=== PATIENT | male | born 1955 | race Caucasian/White ===

== ENCOUNTER 2024-02-19 12:23 | Inpatient (IN) ==
[2024-02-19] MEDS ORDERED: IOPAMIDOL 100 ML BOTTLE IV ONE (12:24)
[2024-02-19] MEDS ORDERED: 0.9 % SODIUM CHLORIDE 1,000 ML IV SCH (12:45)
[2024-02-19 13:24] LABS: Basophils # (Auto) 0.02 K/mcL (0.00-0.30); Basophils % (Auto) 0.1 % (0.0-2.0); Eosinophils # (Auto) 0.08 K/mcL (0.00-0.70); Eosinophils % (Auto) 0.5 % (0.0-7.0); Hematocrit 41.5 % (40.1-51.0); Hemoglobin 13.3 g/dL (13.7-17.5); Lymphocytes # (Auto) 0.75 K/mcL (1.50-4.80); Lymphocytes % (Auto) 4.5 % (15.5-49.0); Mean Cell Volume 100.2 fL (80.0-100.0); Mean Platelet Volume 10.4 fL (8.8-12.5); Monocytes # (Auto) 1.21 K/mcL (0.10-0.90); Monocytes % (Auto) 7.2 % (1.0-12.0); Neutrophils % (Auto) 87.6 % (38.0-78.0); Platelet Count 275 K/mcL (140-440); RBC 4.14 M/mcL (4.63-6.08); Red Cell Distribution Width 15.7 % (11.5-14.5); WBC 16.8 K/mcL (4.5-11.0)
[2024-02-19] MEDS: morphine 4 MG/ML VIAL IV ONE (13:56)
[2024-02-19 13:57] LABS: Thyroid Stimulating Hormone 0.81 uIU/mL (0.27-5.01)
[2024-02-19] MEDS: 0.9 % SODIUM CHLORIDE 1,000 ML IV ONE (13:57)
[2024-02-19 14:00] LABS: ALT/SGPT 44 U/L (<40); AST/SGOT 24 U/L (<40); Albumin 3.5 gm/dL (3.2-5.2); Albumin/Globulin Ratio 1.5 (1.0-2.3); Alkaline Phosphatase 119 U/L (39-117); Bilirubin,Total 0.4 mg/dL (0.1-1.0); Blood Urea Nitrogen 18 mg/dL (8-23); Calcium 8.8 mg/dL (8.6-10.4); Carbon Dioxide 24 mmol/L (22-30); Chloride 100 mmol/L (96-108); Globulin 2.4 gm/dL (2.2-3.7); Glomerular Filtration Rate 123; Glucose 94 mg/dL (70-105); Potassium 4.4 mmol/L (3.3-5.1); Sodium 134 mmol/L (133-145)
[2024-02-19 14:36] LABS: Free T4 (Free Thyroxine) 0.95 ng/dL (0.93-1.70)
[2024-02-19 14:57] LABS: Appearance,Urine Turbid (Clear); Bilirubin,Urine Negative (Negative); Color,Urine Yellow; Culture Indicated,Urine Yes; Glucose,Urine (UA) Negative (Negative); Ketones,Urine Negative (Negative); Leukocyte Esterase,Urine Trace /uL (Negative); Nitrate,Urine Positive (Negative); PH,Urine 8.5 (5.0-9.0); Protein,Urine 100 mg/dL (Negative); Specific Gravity,Urine 1.015 (1.000-1.035); Urine Blood Trace-intact ery/mcL (Negative); Urine RBC 8 /hpf (0-3); Urine Squamous Epithelial Cell 0 /hpf (0-4); Urine WBC 75 /hpf (0-4); Urobilinogen,Urine Normal
[2024-02-19] MEDS: MEROPENEM 0.5 GM in 0.9 % SODIUM CHLORIDE 50 ML IV ONE (15:16)
[2024-02-19] MEDS: VANCOMYCIN 1,500 MG in 0.9 % SODIUM CHLORIDE 500 ML IV ONE (18:24)
[2024-02-19] MEDS ORDERED: guaiFENesin/DEXTROMETHORPHAN 5ML UD CUP PO PRN (19:44)
[2024-02-19] MEDS ORDERED: ACETAMINOPHEN 325 MG TABLET PO PRN (19:44)
[2024-02-19] MEDS: SENNOSIDES 1 TABLET PO SCH (20:50)
[2024-02-19] MEDS: DOCUSATE SODIUM 100 MG CAPSULE PO SCH (20:50)
[2024-02-19] MEDS: 0.9 % SODIUM CHLORIDE 1,000 ML IV SCH (20:50)
[2024-02-19] MEDS: 0.9 % SODIUM CHLORIDE 10 ML SYRINGE IV SCH (20:51)
[2024-02-19] MEDS: VANCOMYCIN PER PHARMACY IV ONE (20:51)
[2024-02-19] MEDS: MEROPENEM 0.5 GM in 0.9 % SODIUM CHLORIDE 50 ML IV SCH (22:21)
[2024-02-19] MEDS ORDERED: IPRATROPIUM 2.5 ML AMPUL.NEB INH PRN (23:19)
[2024-02-20 07:06] LABS: Basophils # (Auto) 0.02 K/mcL (0.00-0.30); Basophils % (Auto) 0.2 % (0.0-2.0); Eosinophils # (Auto) 0.26 K/mcL (0.00-0.70); Eosinophils % (Auto) 2.9 % (0.0-7.0); Hematocrit 39.1 % (40.1-51.0); Hemoglobin 12.4 g/dL (13.7-17.5); Lymphocytes # (Auto) 1.22 K/mcL (1.50-4.80); Lymphocytes % (Auto) 13.6 % (15.5-49.0); Mean Cell Volume 102.1 fL (80.0-100.0); Mean Corpuscular HGB Conc 31.7 g/dL (31.0-36.0); Mean Platelet Volume 10.2 fL (8.8-12.5); Monocytes # (Auto) 0.92 K/mcL (0.10-0.90); Monocytes % (Auto) 10.3 % (1.0-12.0); Neutrophils % (Auto) 72.9 % (38.0-78.0); Platelet Count 227 K/mcL (140-440); RBC 3.83 M/mcL (4.63-6.08); Red Cell Distribution Width 15.6 % (11.5-14.5)
[2024-02-20 07:34] LABS: ALT/SGPT 34 U/L (<40); AST/SGOT 17 U/L (<40); Albumin 3.3 gm/dL (3.2-5.2); Albumin/Globulin Ratio 1.4 (1.0-2.3); Alkaline Phosphatase 102 U/L (39-117); Bilirubin,Total 0.5 mg/dL (0.1-1.0); Blood Urea Nitrogen 11 mg/dL (8-23); Calcium 8.8 mg/dL (8.6-10.4); Carbon Dioxide 26 mmol/L (22-30); Chloride 103 mmol/L (96-108); Globulin 2.3 gm/dL (2.2-3.7); Glomerular Filtration Rate 138; Glucose 73 mg/dL (70-105); Sodium 137 mmol/L (133-145)
[2024-02-20] MEDS ORDERED: BISACODYL 5 MG TABLET PO PRN (07:42)
[2024-02-20] MEDS ORDERED: VANCOMYCIN PER PHARMACY IV SCH (08:00)
[2024-02-20] MEDS: HYDROcodone/APAP 10/325MG TABLET PO PRN (08:41)
[2024-02-20] MEDS: PREGABALIN 100 MG CAPSULE PO SCH (09:04)
[2024-02-20] MEDS: DULoxetine 30 MG CAPSULE PO SCH (09:05)
[2024-02-20] MEDS: BACLOFEN 10 MG TABLET PO SCH (09:05)
[2024-02-20] MEDS: PANTOPRAZOLE 40 MG TABLET PO SCH (09:05)
[2024-02-20] MEDS: ENOXAPARIN 40 MG/0.4 ML SYRINGE SQ SCH (09:06)
[2024-02-20] MEDS: FLUDROCORTISONE 0.1 MG TABLET PO SCH (10:27)
[2024-02-20] MEDS: VANCOMYCIN 1,250 MG in 0.9 % SODIUM CHLORIDE 500 ML IV SCH (12:21)
[2024-02-20] MEDS: morphine 4 MG/ML VIAL IV PRN (13:07)
[2024-02-20] MEDS: ONDANSETRON 4 MG/2 ML VIAL IV PRN (20:06)
[2024-02-20 20:14] LABS: ALT/SGPT 31 U/L (<40); AST/SGOT 17 U/L (<40); Albumin 3.3 gm/dL (3.2-5.2); Albumin/Globulin Ratio 1.4 (1.0-2.3); Alkaline Phosphatase 99 U/L (39-117); Bilirubin,Direct < 0.2 mg/dL (0-0.3); Bilirubin,Total 0.3 mg/dL (0.1-1.0); Blood Urea Nitrogen 9 mg/dL (8-23); Calcium 8.7 mg/dL (8.6-10.4); Carbon Dioxide 26 mmol/L (22-30); Chloride 106 mmol/L (96-108); Globulin 2.4 gm/dL (2.2-3.7); Glomerular Filtration Rate 123; Glucose 102 mg/dL (70-105); Lactate Dehydrogenase 195 U/L (135-225); Phosphorous 2.6 mg/dL (2.5-4.5); Potassium 3.9 mmol/L (3.3-5.1); Sodium 139 mmol/L (133-145); Triglycerides 116 mg/dL (<150); Uric Acid 5.1 mg/dL (2.5-8.0)
[2024-02-20 20:41] LABS: Prealbumin 14.5 mg/dL (20.0-40.0)
[2024-02-20] MEDS: CHLORHEXIDINE GLUCONATE 15 ML UDC SWABMOUTH SCH (21:37)
[2024-02-20] MEDS: traMADol 50 MG TABLET PO PRN (21:38)
[2024-02-21 07:16] LABS: ALT/SGPT 29 U/L (<40); AST/SGOT 15 U/L (<40); Albumin 3.4 gm/dL (3.2-5.2); Albumin/Globulin Ratio 1.5 (1.0-2.3); Alkaline Phosphatase 114 U/L (39-117); Bilirubin,Direct < 0.2 mg/dL (0-0.3); Bilirubin,Total 0.3 mg/dL (0.1-1.0); Blood Urea Nitrogen 8 mg/dL (8-23); Calcium 8.9 mg/dL (8.6-10.4); Carbon Dioxide 27 mmol/L (22-30); Chloride 108 mmol/L (96-108); Globulin 2.2 gm/dL (2.2-3.7); Glomerular Filtration Rate 138; Glucose 110 mg/dL (70-105); Lactate Dehydrogenase 360 U/L (135-225); Phosphorous 3.4 mg/dL (2.5-4.5); Potassium 3.8 mmol/L (3.3-5.1); Sodium 142 mmol/L (133-145); Triglycerides 130 mg/dL (<150); Uric Acid 5.2 mg/dL (2.5-8.0)
[2024-02-21] MEDS: VANCOMYCIN 1,500 MG in 0.9 % SODIUM CHLORIDE 500 ML IV SCH (20:09)
[2024-02-22] MEDS ORDERED: GADOBENATE DIMEGLUMINE 20 ML/VIAL IV ONE (09:59)
[2024-02-23] MEDS: IPRATROPIUM/ALBUTEROL 3 ML AMPUL.NEB NEB PRN (12:10)
[2024-02-23] MEDS: guaiFENesin 600 MG TAB.SR.12H PO PRN (14:13)
[2024-02-23] MEDS: 0.9 % SODIUM CHLORIDE 10 ML SYRINGE IV SCH (21:06)
[2024-02-24] MEDS ORDERED: SODIUM CHLORIDE IRRIG SOLUTION 500 ML BOTTLE IRR ONE (10:30)
== END 2024-02-24 16:45 | disposition home or self-care (01) | DRG 193 ==
LOC: ED 12:23 → MEDSUR 19:35
PROVIDERS: ADMIT Internal Medicine; ATTEND Internal Medicine

== ENCOUNTER 2024-04-16 21:05 | Inpatient (IN) ==
[2024-04-16 22:23] LABS: Basophils # (Auto) 0.01 K/mcL (0.00-0.30); Basophils % (Auto) 0.1 % (0.0-2.0); Eosinophils # (Auto) 0.06 K/mcL (0.00-0.70); Eosinophils % (Auto) 0.3 % (0.0-7.0); Hematocrit 43.9 % (40.1-51.0); Hemoglobin 14.3 g/dL (13.7-17.5); Lymphocytes # (Auto) 0.44 K/mcL (1.50-4.80); Lymphocytes % (Auto) 2.3 % (15.5-49.0); Mean Cell Volume 94.4 fL (80.0-100.0); Mean Corpuscular HGB Conc 32.6 g/dL (31.0-36.0); Mean Platelet Volume 10.3 fL (8.8-12.5); Monocytes # (Auto) 1.39 K/mcL (0.10-0.90); Monocytes % (Auto) 7.3 % (1.0-12.0); Neutrophils % (Auto) 89.8 % (38.0-78.0); Platelet Count 217 K/mcL (140-440); RBC 4.65 M/mcL (4.63-6.08); Red Cell Distribution Width 12.2 % (11.5-14.5); WBC 19.1 K/mcL (4.5-11.0)
[2024-04-16] MEDS: ACETAMINOPHEN 1,000 MG/100 ML BAG IV ONE (22:44)
[2024-04-16] MEDS: 0.9 % SODIUM CHLORIDE 1,000 ML IV ONE (22:44)
[2024-04-16 22:45] LABS: Thyroid Stimulating Hormone 0.45 uIU/mL (0.27-5.01)
[2024-04-16 22:46] LABS: ALT/SGPT 37 U/L (<40); AST/SGOT 25 U/L (<40); Albumin 3.7 gm/dL (3.2-5.2); Albumin/Globulin Ratio 1.6 (1.0-2.3); Alkaline Phosphatase 111 U/L (39-117); Bilirubin,Total 0.2 mg/dL (0.1-1.0); Blood Urea Nitrogen 21 mg/dL (8-23); Calcium 8.8 mg/dL (8.6-10.4); Carbon Dioxide 23 mmol/L (22-30); Chloride 103 mmol/L (96-108); Globulin 2.3 gm/dL (2.2-3.7); Glomerular Filtration Rate 123; Glucose 106 mg/dL (70-105); Sodium 137 mmol/L (133-145)
[2024-04-16] MEDS: VANCOMYCIN 2,000 MG in 0.9 % SODIUM CHLORIDE 500 ML IV ONE (23:40)
[2024-04-16 23:42] LABS: Appearance,Urine CLOUDY (Clear); Bilirubin,Urine Negative (Negative); Color,Urine YELLOW; Glucose,Urine (UA) Negative (Negative); Ketones,Urine Negative (Negative); Leukocyte Esterase,Urine 500 /uL (Negative); Mucus,Urine FEW /hpf; Nitrate,Urine Negative (Negative); Protein,Urine 100 mg/dL (Negative); Specific Gravity,Urine 1.025 (1.000-1.035); Triple Phosphate Crystal,Urine FEW /hpf; Urine Amorphous Crystals FEW /hpf; Urine Blood Negative (Negative); Urine RBC 12 /hpf (0-3); Urine Squamous Epithelial Cell 0 /hpf (0-4); Urine WBC 77 /hpf (0-4); Urobilinogen,Urine Negative
[2024-04-16 23:52] LABS: Amphetamine Screen,Urine None detected; Barbiturate Screen,Urine None detected; Benzodiazepines Screen,Urine None detected; Cannabinoid Screen,Urine None detected; Cocaine Screen,Urine None detected; Fentanyl, Urine Screen None Detected; Opiate Screen,Urine Suspect Positive; Oxycodone, Urine Screen None detected; Phencyclidine Screen,Urine None detected
[2024-04-17] MEDS: IPRATROPIUM/ALBUTEROL 3 ML AMPUL.NEB NEB ONE (01:12)
[2024-04-17] MEDS ORDERED: ONDANSETRON 4 MG/2 ML VIAL IV PRN ×2 (01:33→09:32)
[2024-04-17] MEDS: MEROPENEM 0.5 GM in 0.9 % SODIUM CHLORIDE 50 ML IV ONE (01:50)
[2024-04-17] MEDS: ACETAMINOPHEN 650 MG/65 ML BAG IV STA (07:43)
[2024-04-17] MEDS ORDERED: IPRATROPIUM/ALBUTEROL 3 ML AMPUL.NEB NEB PRN (09:32)
[2024-04-17] MEDS ORDERED: POTASSIUM CHLORIDE 40 MEQ in DEXTROSE 5% IN WATER 500 ML IV PRN (09:32)
[2024-04-17] MEDS ORDERED: MAGNESIUM SULFATE 2 GM/50 ML BAG IV PRN (09:32)
[2024-04-17] MEDS ORDERED: POTASSIUM CHLORIDE 20 MEQ TABLET PO PRN ×2 (09:32)
[2024-04-17] MEDS ORDERED: METOCLOPRAMIDE 10 MG/2 ML VIAL IV PRN (09:32)
[2024-04-17] MEDS ORDERED: POLYETHYLENE GLYCOL 3350 17 GM PACKET PO PRN (09:32)
[2024-04-17] MEDS ORDERED: VANCOMYCIN PER PHARMACY IV SCH (09:32)
[2024-04-17] MEDS ORDERED: BISACODYL 5 MG TABLET PO PRN (09:53)
[2024-04-17] MEDS: DULoxetine 30 MG CAPSULE PO SCH (10:15)
[2024-04-17] MEDS: HYDROcodone/APAP 10/325MG TABLET PO PRN (10:16)
[2024-04-17] MEDS: MEROPENEM 1 GM in 0.9 % SODIUM CHLORIDE 50 ML IV SCH (10:16)
[2024-04-17] MEDS: CITALOPRAM 20 MG TABLET PO SCH (10:16)
[2024-04-17] MEDS: FLUDROCORTISONE 0.1 MG TABLET PO SCH (10:51)
[2024-04-17] MEDS: VANCOMYCIN 2,000 MG in 0.9 % SODIUM CHLORIDE 500 ML IV SCH (11:43)
[2024-04-17] MEDS: BACLOFEN 10 MG TABLET PO SCH (12:53)
[2024-04-17] MEDS: 0.9 % SODIUM CHLORIDE 10 ML SYRINGE IV SCH (14:30)
[2024-04-17] MEDS ORDERED: HYDROcodone/APAP 10/325MG TABLET PO PRN (14:43)
[2024-04-17] MEDS ORDERED: PREGABALIN 100 MG CAPSULE PO SCH (15:00)
[2024-04-17] MEDS: BISACODYL 5 MG TABLET PO ONE (15:08)
[2024-04-17] MEDS: POLYETHYLENE GLYCOL 3350 17 GM PACKET PO ONE (15:08)
[2024-04-17] MEDS: HYPROMELLOSE OU SCH (21:21)
[2024-04-17] MEDS: HYDROcodone/APAP 10/325MG TABLET PO SCH (21:21)
[2024-04-17] MEDS: [UNRECOGNIZED DRUG - OTHER] OU SCH (21:21)
[2024-04-17] MEDS: PROPYLENE GLYCOL OU SCH (21:21)
[2024-04-17] MEDS: [UNRECOGNIZED DRUG - OTHER] OU SCH (21:21)
[2024-04-17] MEDS: TRAMADOL 100 MG PO SCH (21:22)
[2024-04-17] MEDS: PREGABALIN 100 MG CAPSULE PO SCH (21:23)
[2024-04-17] MEDS: DOCUSATE SODIUM 100 MG CAPSULE PO SCH (21:23)
[2024-04-17] MEDS: guaiFENesin 600 MG TAB.SR.12H PO SCH (21:23)
[2024-04-18 06:06] LABS: Basophils # (Auto) 0.03 K/mcL (0.00-0.30); Basophils % (Auto) 0.2 % (0.0-2.0); Eosinophils # (Auto) 0.14 K/mcL (0.00-0.70); Eosinophils % (Auto) 0.9 % (0.0-7.0); Hematocrit 38.4 % (40.1-51.0); Hemoglobin 13.1 g/dL (13.7-17.5); Lymphocytes # (Auto) 1.01 K/mcL (1.50-4.80); Lymphocytes % (Auto) 6.4 % (15.5-49.0); Mean Cell Volume 90.4 fL (80.0-100.0); Mean Corpuscular HGB Conc 34.1 g/dL (31.0-36.0); Mean Platelet Volume 10.6 fL (8.8-12.5); Monocytes # (Auto) 1.48 K/mcL (0.10-0.90); Monocytes % (Auto) 9.4 % (1.0-12.0); Neutrophils % (Auto) 82.9 % (38.0-78.0); Platelet Count 189 K/mcL (140-440); RBC 4.25 M/mcL (4.63-6.08); Red Cell Distribution Width 12.5 % (11.5-14.5); WBC 15.7 K/mcL (4.5-11.0)
[2024-04-18 06:36] LABS: ALT/SGPT 21 U/L (<40); AST/SGOT 17 U/L (<40); Albumin 3.1 gm/dL (3.2-5.2); Albumin/Globulin Ratio 1.2 (1.0-2.3); Alkaline Phosphatase 96 U/L (39-117); Bilirubin,Direct < 0.2 mg/dL (0-0.3); Bilirubin,Total 0.3 mg/dL (0.1-1.0); Blood Urea Nitrogen 11 mg/dL (8-23); Calcium 8.5 mg/dL (8.6-10.4); Carbon Dioxide 24 mmol/L (22-30); Chloride 106 mmol/L (96-108); Globulin 2.5 gm/dL (2.2-3.7); Glomerular Filtration Rate 138; Glucose 101 mg/dL (70-105); Lactate Dehydrogenase 123 U/L (135-225); Phosphorous 1.8 mg/dL (2.5-4.5); Potassium 3.7 mmol/L (3.3-5.1); Sodium 140 mmol/L (133-145); Triglycerides 96 mg/dL (<150); Uric Acid 3.4 mg/dL (2.5-8.0)
[2024-04-18] MEDS: BISACODYL 5 MG TABLET PO SCH (09:11)
[2024-04-18] MEDS: POLYETHYLENE GLYCOL 3350 17 GM PACKET PO SCH (09:11)
[2024-04-18] MEDS: ENOXAPARIN 40 MG/0.4 ML SYRINGE SQ SCH (09:12)
[2024-04-18] MEDS: POTASSIUM PHOSPHATE 20 MEQ in DEXTROSE 5% IN WATER 250 ML IV ONE (09:19)
[2024-04-18] MEDS: VANCOMYCIN 1,500 MG in 0.9 % SODIUM CHLORIDE 500 ML IV SCH (11:33)
[2024-04-18 14:14] LABS: Appearance,Urine Slightly Cloudy (Clear); Bilirubin,Urine Negative (Negative); Color,Urine Yellow; Glucose,Urine (UA) Negative (Negative); Ketones,Urine Negative (Negative); Leukocyte Esterase,Urine Small /uL (Negative); Nitrate,Urine Negative (Negative); PH,Urine 5.5 (5.0-9.0); Protein,Urine Negative (Negative); Urine Blood Large ery/mcL (Negative); Urine RBC 2 /hpf (0-3); Urine Squamous Epithelial Cell 0 /hpf (0-4); Urine WBC 1 /hpf (0-4); Urobilinogen,Urine Normal
[2024-04-18] MEDS: PREGABALIN 100 MG CAPSULE PO SCH (14:21)
[2024-04-18] MEDS: ACETAMINOPHEN 325 MG TABLET PO PRN (14:25)
[2024-04-18] MEDS: CITALOPRAM 20 MG TABLET PO SCH (21:20)
[2024-04-19 05:58] LABS: Basophils # (Auto) 0.01 K/mcL (0.00-0.30); Basophils % (Auto) 0.1 % (0.0-2.0); Eosinophils # (Auto) 0.07 K/mcL (0.00-0.70); Eosinophils % (Auto) 0.8 % (0.0-7.0); Hematocrit 38.1 % (40.1-51.0); Hemoglobin 12.8 g/dL (13.7-17.5); Lymphocytes # (Auto) 0.59 K/mcL (1.50-4.80); Lymphocytes % (Auto) 7.1 % (15.5-49.0); Mean Cell Volume 90.7 fL (80.0-100.0); Mean Corpuscular HGB Conc 33.6 g/dL (31.0-36.0); Mean Platelet Volume 10.3 fL (8.8-12.5); Monocytes # (Auto) 1.12 K/mcL (0.10-0.90); Monocytes % (Auto) 13.5 % (1.0-12.0); Neutrophils % (Auto) 78.3 % (38.0-78.0); Platelet Count 177 K/mcL (140-440); Red Cell Distribution Width 12.4 % (11.5-14.5); WBC 8.3 K/mcL (4.5-11.0)
[2024-04-19] MEDS: BISACODYL 5 MG TABLET PO SCH (08:43)
[2024-04-19] MEDS: SENNOSIDES 1 TABLET PO PRN (08:44)
[2024-04-19 09:39] LABS: ALT/SGPT 21 U/L (<40); AST/SGOT 13 U/L (<40); Albumin 3.1 gm/dL (3.2-5.2); Albumin/Globulin Ratio 1.3 (1.0-2.3); Alkaline Phosphatase 87 U/L (39-117); Bilirubin,Direct < 0.2 mg/dL (0-0.3); Bilirubin,Total 0.3 mg/dL (0.1-1.0); Blood Urea Nitrogen 11 mg/dL (8-23); Calcium 8.3 mg/dL (8.6-10.4); Carbon Dioxide 25 mmol/L (22-30); Chloride 105 mmol/L (96-108); Globulin 2.3 gm/dL (2.2-3.7); Glomerular Filtration Rate 138; Glucose 97 mg/dL (70-105); Lactate Dehydrogenase 127 U/L (135-225); Phosphorous 2.3 mg/dL (2.5-4.5); Potassium 3.5 mmol/L (3.3-5.1); Sodium 140 mmol/L (133-145); Triglycerides 120 mg/dL (<150); Uric Acid 3.2 mg/dL (2.5-8.0)
[2024-04-19] MEDS ORDERED: GADOBENATE DIMEGLUMINE 20 ML/VIAL IV ONE (12:19)
[2024-04-19] MEDS: PREGABALIN 100 MG CAPSULE PO SCH (13:21)
[2024-04-19] MEDS: ACETAMINOPHEN 500 MG TABLET PO PRN (14:47)
[2024-04-19] MEDS: IBUPROFEN 600 MG TABLET PO PRN (14:47)
[2024-04-20 06:36] LABS: C-Reactive Protein 9.93 mg/dL (0.03-0.80)
[2024-04-20 06:37] LABS: ALT/SGPT 23 U/L (<40); AST/SGOT 16 U/L (<40); Albumin 2.9 gm/dL (3.2-5.2); Albumin/Globulin Ratio 1.5 (1.0-2.3); Alkaline Phosphatase 78 U/L (39-117); Bilirubin,Direct < 0.2 mg/dL (0-0.3); Bilirubin,Total < 0.2 mg/dL (0.1-1.0); Blood Urea Nitrogen 14 mg/dL (8-23); Calcium 8.8 mg/dL (8.6-10.4); Carbon Dioxide 27 mmol/L (22-30); Chloride 107 mmol/L (96-108); Glomerular Filtration Rate 138; Glucose 87 mg/dL (70-105); Lactate Dehydrogenase 107 U/L (135-225); Phosphorous 2.4 mg/dL (2.5-4.5); Potassium 3.4 mmol/L (3.3-5.1); Sodium 143 mmol/L (133-145); Triglycerides 116 mg/dL (<150)
[2024-04-20 07:38] LABS: Basophils # (Auto) 0.03 K/mcL (0.00-0.30); Basophils % (Auto) 0.9 % (0.0-2.0); Eosinophils # (Auto) 0.25 K/mcL (0.00-0.70); Eosinophils % (Auto) 7.5 % (0.0-7.0); Hematocrit 38.7 % (40.1-51.0); Hemoglobin 12.4 g/dL (13.7-17.5); Lymphocytes # (Auto) 0.62 K/mcL (1.50-4.80); Lymphocytes % (Auto) 18.7 % (15.5-49.0); Mean Cell Volume 95.1 fL (80.0-100.0); Mean Platelet Volume 10.4 fL (8.8-12.5); Monocytes # (Auto) 0.77 K/mcL (0.10-0.90); Monocytes % (Auto) 23.2 % (1.0-12.0); Neutrophils % (Auto) 49.4 % (38.0-78.0); Platelet Count 195 K/mcL (140-440); RBC 4.07 M/mcL (4.63-6.08); Red Cell Distribution Width 12.3 % (11.5-14.5); WBC 3.3 K/mcL (4.5-11.0)
[2024-04-21] MEDS: CEPHALEXIN 500 MG CAPSULE PO SCH (08:46)
[2024-04-21] MEDS: LINEZOLID 600 MG TABLET PO SCH (08:49)
== END 2024-04-21 13:53 | disposition home health service (06) | DRG 698 ==
LOC: ED 21:05 → MEDSUR 04-17 02:16
PROVIDERS: ADMIT Internal Medicine; ATTEND Internal Medicine

== ENCOUNTER 2024-06-26 18:39 | Inpatient (IN) ==
[2024-06-26] MEDS: ACETAMINOPHEN 1,000 MG/100 ML BAG IV ONE (19:27)
[2024-06-26] MEDS: 0.9 % SODIUM CHLORIDE 1,000 ML IV ONE ×2 (19:28→21:21)
[2024-06-26 19:43] LABS: Basophils # (Auto) 0.02 K/mcL (0.00-0.30); Basophils % (Auto) 0.1 % (0.0-2.0); Eosinophils # (Auto) 0.11 K/mcL (0.00-0.70); Eosinophils % (Auto) 0.8 % (0.0-7.0); Hematocrit 41.4 % (40.1-51.0); Hemoglobin 13.4 g/dL (13.7-17.5); Lymphocytes # (Auto) 0.97 K/mcL (1.50-4.80); Lymphocytes % (Auto) 6.9 % (15.5-49.0); Mean Cell Volume 96.1 fL (80.0-100.0); Mean Corpuscular HGB Conc 32.4 g/dL (31.0-36.0); Mean Platelet Volume 10.3 fL (8.8-12.5); Monocytes # (Auto) 1.19 K/mcL (0.10-0.90); Monocytes % (Auto) 8.4 % (1.0-12.0); Neutrophils % (Auto) 83.5 % (38.0-78.0); Platelet Count 272 K/mcL (140-440); RBC 4.31 M/mcL (4.63-6.08); Red Cell Distribution Width 14.4 % (11.5-14.5); WBC 14.1 K/mcL (4.5-11.0)
[2024-06-26 19:57] LABS: Blood Urea Nitrogen 26 mg/dL (8-23); Carbon Dioxide 26 mmol/L (22-30); Chloride 100 mmol/L (96-108); Glomerular Filtration Rate 112; Glucose 100 mg/dL (70-105); Potassium 4.2 mmol/L (3.3-5.1); Sodium 137 mmol/L (133-145)
[2024-06-26 20:00] LABS: Appearance,Urine Slightly Cloudy (Clear); Bacteria,Urine Many /hpf (0); Bilirubin,Urine Negative (Negative); Color,Urine Yellow; Glucose,Urine (UA) Negative (Negative); Ketones,Urine Negative (Negative); Leukocyte Esterase,Urine Large /uL (Negative); Nitrate,Urine Positive (Negative); PH,Urine 5.5 (5.0-9.0); Protein,Urine 100 mg/dL (Negative); Urine Blood Trace-intact ery/mcL (Negative); Urine RBC 0 /hpf (0-3); Urine Squamous Epithelial Cell 0 /hpf (0-4); Urine WBC 150 /hpf (0-4); Urobilinogen,Urine Normal
[2024-06-26] MEDS: cefTRIAXone 1 GM VIAL IV ONE (20:29)
[2024-06-26] MEDS: OSELTAMIVIR PHOSPHATE 75 MG CAPSULE PO ONE (21:04)
[2024-06-26] MEDS: KETOROLAC 15 MG/ML VIAL IV ONE (21:05)
[2024-06-26] MEDS: 0.9 % SODIUM CHLORIDE 250 ML ONE (21:11)
[2024-06-26] MEDS: VANCOMYCIN PER PHARMACY IV ONE (21:21)
[2024-06-26] MEDS: VANCOMYCIN 1,000 MG in 0.9 % SODIUM CHLORIDE 250 ML IV ONE (21:52)
[2024-06-26] MEDS: DOXYCYCLINE 100 MG in DEXTROSE 5% IN WATER 100 ML IV SCH (21:53)
[2024-06-26] MEDS: HYDROcodone/APAP 10/325MG TABLET PO ONE (22:33)
[2024-06-26] MEDS ORDERED: ONDANSETRON 4 MG/2 ML VIAL IV PRN (22:43)
[2024-06-26] MEDS ORDERED: ACETAMINOPHEN 325 MG TABLET PO PRN (22:43)
[2024-06-26] MEDS: VANCOMYCIN 125 MG CAPSULE PO SCH (23:09)
[2024-06-26] MEDS: PREGABALIN 100 MG CAPSULE PO SCH (23:09)
[2024-06-26] MEDS: MEROPENEM 1 GM in 0.9 % SODIUM CHLORIDE 50 ML IV SCH (23:10)
[2024-06-26] MEDS: 0.9 % SODIUM CHLORIDE 10 ML SYRINGE IV SCH (23:11)
[2024-06-26] MEDS: PREGABALIN 100 MG CAPSULE PO ONE (23:11)
[2024-06-26] MEDS: 0.9 % SODIUM CHLORIDE 1,000 ML IV SCH (23:48)
[2024-06-27 06:32] LABS: Basophils # (Auto) 0.04 K/mcL (0.00-0.30); Basophils % (Auto) 0.5 % (0.0-2.0); Eosinophils # (Auto) 0.17 K/mcL (0.00-0.70); Hemoglobin 12.3 g/dL (13.7-17.5); Lymphocytes # (Auto) 0.65 K/mcL (1.50-4.80); Lymphocytes % (Auto) 7.7 % (15.5-49.0); Mean Cell Volume 95.5 fL (80.0-100.0); Mean Corpuscular HGB Conc 32.4 g/dL (31.0-36.0); Mean Platelet Volume 10.3 fL (8.8-12.5); Monocytes # (Auto) 0.98 K/mcL (0.10-0.90); Monocytes % (Auto) 11.6 % (1.0-12.0); Neutrophils % (Auto) 77.8 % (38.0-78.0); Platelet Count 217 K/mcL (140-440); RBC 3.98 M/mcL (4.63-6.08); Red Cell Distribution Width 14.5 % (11.5-14.5); WBC 8.5 K/mcL (4.5-11.0)
[2024-06-27 07:07] LABS: ALT/SGPT 25 U/L (<40); AST/SGOT 15 U/L (<40); Albumin 3.4 gm/dL (3.2-5.2); Albumin/Globulin Ratio 1.6 (1.0-2.3); Alkaline Phosphatase 93 U/L (39-117); Bilirubin,Direct < 0.2 mg/dL (0-0.3); Bilirubin,Total 0.3 mg/dL (0.1-1.0); Blood Urea Nitrogen 15 mg/dL (8-23); Calcium 8.5 mg/dL (8.6-10.4); Carbon Dioxide 23 mmol/L (22-30); Chloride 107 mmol/L (96-108); Globulin 2.1 gm/dL (2.2-3.7); Glomerular Filtration Rate 138; Glucose 87 mg/dL (70-105); Lactate Dehydrogenase 114 U/L (135-225); Potassium 3.7 mmol/L (3.3-5.1); Sodium 142 mmol/L (133-145); Triglycerides 97 mg/dL (<150); Uric Acid 3.9 mg/dL (2.5-8.0)
[2024-06-27] MEDS: HYDROcodone/APAP 10/325MG TABLET PO PRN (07:33)
[2024-06-27] MEDS ORDERED: VANCOMYCIN PER PHARMACY IV SCH (08:00)
[2024-06-27] MEDS: TRAMADOL 100 MG PO SCH ×2 (10:36→11:22)
[2024-06-27] MEDS: POLYETHYLENE GLYCOL 3350 17 GM PACKET PO SCH (10:36)
[2024-06-27] MEDS: DULoxetine 30 MG CAPSULE PO SCH (10:37)
[2024-06-27] MEDS: HEPARIN 5,000 UNIT/ML VIAL SQ SCH (10:38)
[2024-06-27] MEDS: CARBOXYMETHYLCELLULOSE SODIUM 1 EACH DROPER.GEL OU SCH (10:39)
[2024-06-27] MEDS: BACLOFEN 10 MG TABLET PO SCH (10:50)
[2024-06-27] MEDS: BISACODYL 5 MG TABLET PO SCH (10:51)
[2024-06-27] MEDS: FLUDROCORTISONE 0.1 MG TABLET PO SCH (10:51)
[2024-06-27] MEDS: guaiFENesin 600 MG TAB.SR.12H PO SCH (10:51)
[2024-06-27] MEDS: VANCOMYCIN 1,500 MG in 0.9 % SODIUM CHLORIDE 500 ML IV SCH (10:53)
[2024-06-27] MEDS: OSELTAMIVIR PHOSPHATE 75 MG CAPSULE PO SCH (11:21)
[2024-06-27] MEDS: IPRATROPIUM/ALBUTEROL 3 ML AMPUL.NEB NEB PRN (11:40)
[2024-06-27] MEDS: IPRATROPIUM/ALBUTEROL 3 ML AMPUL.NEB NEB SCH ×2 (15:02→21:19)
[2024-06-27] MEDS: HYDROcodone/APAP 10/325MG TABLET PO SCH (21:32)
[2024-06-27] MEDS: CITALOPRAM 20 MG TABLET PO SCH (21:33)
[2024-06-28 06:29] LABS: Basophils # (Auto) 0.02 K/mcL (0.00-0.30); Basophils % (Auto) 0.4 % (0.0-2.0); Eosinophils # (Auto) 0.19 K/mcL (0.00-0.70); Hematocrit 39.7 % (40.1-51.0); Hemoglobin 12.6 g/dL (13.7-17.5); Lymphocytes # (Auto) 0.85 K/mcL (1.50-4.80); Lymphocytes % (Auto) 17.7 % (15.5-49.0); Mean Cell Volume 97.1 fL (80.0-100.0); Mean Corpuscular HGB Conc 31.7 g/dL (31.0-36.0); Mean Platelet Volume 10.1 fL (8.8-12.5); Monocytes % (Auto) 16.6 % (1.0-12.0); Neutrophils % (Auto) 60.3 % (38.0-78.0); Platelet Count 258 K/mcL (140-440); RBC 4.09 M/mcL (4.63-6.08); Red Cell Distribution Width 14.3 % (11.5-14.5); WBC 4.8 K/mcL (4.5-11.0)
[2024-06-28 06:30] LABS: ALT/SGPT 29 U/L (<40); AST/SGOT 20 U/L (<40); Albumin 3.7 gm/dL (3.2-5.2); Albumin/Globulin Ratio 1.8 (1.0-2.3); Alkaline Phosphatase 92 U/L (39-117); Bilirubin,Direct < 0.2 mg/dL (0-0.3); Bilirubin,Total 0.2 mg/dL (0.1-1.0); Blood Urea Nitrogen 13 mg/dL (8-23); C-Reactive Protein 5.76 mg/dL (0.03-0.80); Calcium 9.1 mg/dL (8.6-10.4); Carbon Dioxide 26 mmol/L (22-30); Chloride 108 mmol/L (96-108); Globulin 2.1 gm/dL (2.2-3.7); Glomerular Filtration Rate 138; Glucose 85 mg/dL (70-105); Lactate Dehydrogenase 143 U/L (135-225); Potassium 3.9 mmol/L (3.3-5.1); Sodium 144 mmol/L (133-145); Triglycerides 84 mg/dL (<150); Uric Acid 3.9 mg/dL (2.5-8.0)
[2024-06-28] MEDS ORDERED: VANCOMYCIN 1,500 MG in 0.9 % SODIUM CHLORIDE 500 ML IV SCH (21:00)
[2024-06-29 06:35] LABS: Basophils # (Auto) 0.03 K/mcL (0.00-0.30); Basophils % (Auto) 0.6 % (0.0-2.0); Eosinophils # (Auto) 0.28 K/mcL (0.00-0.70); Eosinophils % (Auto) 5.8 % (0.0-7.0); Hematocrit 40.3 % (40.1-51.0); Hemoglobin 12.9 g/dL (13.7-17.5); Lymphocytes # (Auto) 0.94 K/mcL (1.50-4.80); Lymphocytes % (Auto) 19.3 % (15.5-49.0); Mean Cell Volume 97.6 fL (80.0-100.0); Mean Platelet Volume 9.8 fL (8.8-12.5); Monocytes # (Auto) 0.74 K/mcL (0.10-0.90); Monocytes % (Auto) 15.2 % (1.0-12.0); Neutrophils % (Auto) 58.1 % (38.0-78.0); Platelet Count 283 K/mcL (140-440); RBC 4.13 M/mcL (4.63-6.08); Red Cell Distribution Width 14.2 % (11.5-14.5); WBC 4.9 K/mcL (4.5-11.0)
[2024-06-29 07:20] LABS: ALT/SGPT 29 U/L (<40); AST/SGOT 16 U/L (<40); Albumin 3.5 gm/dL (3.2-5.2); Albumin/Globulin Ratio 1.5 (1.0-2.3); Alkaline Phosphatase 90 U/L (39-117); Bilirubin,Direct < 0.2 mg/dL (0-0.3); Bilirubin,Total < 0.2 mg/dL (0.1-1.0); Blood Urea Nitrogen 15 mg/dL (8-23); Calcium 9.2 mg/dL (8.6-10.4); Carbon Dioxide 27 mmol/L (22-30); Chloride 106 mmol/L (96-108); Globulin 2.4 gm/dL (2.2-3.7); Glomerular Filtration Rate 123; Glucose 91 mg/dL (70-105); Lactate Dehydrogenase 122 U/L (135-225); Potassium 4.3 mmol/L (3.3-5.1); Sodium 144 mmol/L (133-145); Triglycerides 106 mg/dL (<150); Uric Acid 4.1 mg/dL (2.5-8.0)
[2024-06-29] MEDS ORDERED: 0.9 % SODIUM CHLORIDE 10 ML SYRINGE IV PRN (14:15)
[2024-06-29] MEDS: SODIUM CHLORIDE 0.9% IV SCH (14:48)
[2024-06-29] MEDS: TAZOBACTAM IV SCH (14:48)
[2024-06-29] MEDS: CEFTOLOZANE IV SCH (14:48)
[2024-06-29] MEDS ORDERED: SODIUM CHLORIDE IRRIG SOLUTION 250 ML BOTTLE IRR ONE (15:51)
[2024-06-29] MEDS ORDERED: LIDOCAINE 1% 10 ML VIAL SQ ONE (15:51)
[2024-06-29] MEDS: MUPIROCIN OINT 2% 22GM NARES SCH (21:38)
== END 2024-07-01 16:32 | disposition home or self-care (01) | DRG 689 ==
LOC: ED 18:39 → ICU 22:40 → MEDSUR 06-28 15:42
PROVIDERS: ADMIT Student in an Organized Health Care Education/Training Program; ATTEND Internal Medicine

== ENCOUNTER 2025-05-11 03:38 | Inpatient (IN) ==
[2025-05-11] MEDS ORDERED: IOPAMIDOL 100 ML BOTTLE IV ONE (03:39)
[2025-05-11] MEDS: 0.9 % SODIUM CHLORIDE 1,000 ML IV ONE ×2 (04:07→06:07)
[2025-05-11 04:08] LABS: Basophils # (Auto) 0.02 K/mcL (0.00-0.30); Basophils % (Auto) 0.2 % (0.0-2.0); Eosinophils # (Auto) 0.01 K/mcL (0.00-0.70); Eosinophils % (Auto) 0.1 % (0.0-7.0); Hematocrit 46.3 % (40.1-51.0); Hemoglobin 14.5 g/dL (13.7-17.5); Lymphocytes # (Auto) 0.38 K/mcL (1.50-4.80); Lymphocytes % (Auto) 3.0 % (15.5-49.0); Mean Corpuscular HGB Conc 31.3 g/dL (31.0-36.0); Monocytes # (Auto) 1.11 K/mcL (0.10-0.90); Monocytes % (Auto) 8.6 % (1.0-12.0); Neutrophils % (Auto) 87.9 % (38.0-78.0); Platelet Count 223 K/mcL (140-440); RBC 5.33 M/mcL (4.63-6.08); WBC 12.9 K/mcL (4.5-11.0)
[2025-05-11] MEDS: ACETAMINOPHEN 1,000 MG/100 ML BAG IV ONE (04:08)
[2025-05-11 04:25] LABS: ALT/SGPT 16 U/L (<40); AST/SGOT 15 U/L (<40); Albumin 3.5 gm/dL (3.2-5.2); Albumin/Globulin Ratio 1.4 (1.0-2.3); Alkaline Phosphatase 119 U/L (39-117); Anion Gap 11.0 (8.0-16.0); Bilirubin,Total 0.3 mg/dL (0.1-1.0); Blood Urea Nitrogen 18 mg/dL (8-23); Calcium 8.6 mg/dL (8.6-10.4); Carbon Dioxide 24 mmol/L (22-30); Chloride 103 mmol/L (96-108); Globulin 2.5 gm/dL (2.2-3.7); Glucose 122 mg/dL (70-105); Potassium 3.4 mmol/L (3.3-5.1); Sodium 138 mmol/L (133-145)
[2025-05-11 04:44] LABS: VBG HCO3 25.1 mmol/L (24.0-28.0); VBG PCO2 38.0 mmHg (41.0-51.0); VBG PH 7.44 U (7.32-7.42); VBG PO2 102.1 mmHg (25.0-40.0)
[2025-05-11] MEDS: CEFEPIME 2 GM VIAL IV ONE (05:50)
[2025-05-11] MEDS: AZITHROMYCIN 500 MG in DEXTROSE 5% IN WATER 250 ML IV ONE (05:50)
[2025-05-11] MEDS: ONDANSETRON 4 MG/2 ML VIAL IV ONE (06:09)
[2025-05-11 06:31] LABS: Bacteria,Urine Mod /hpf (0); Bilirubin,Urine NEGATIVE (Negative); Color,Urine YELLOW; Glucose,Urine (UA) NEGATIVE (Negative); Ketones,Urine NEGATIVE (Negative); Leukocyte Esterase,Urine TRACE /uL (Negative); PH,Urine 6.0 (5.0-9.0); Protein,Urine 100 mg/dL (Negative); Specific Gravity,Urine <= 1.005 (1.000-1.035); Urine Amorphous Crystals Mod /hpf; Urobilinogen,Urine 0.2 mg/dL
[2025-05-11] MEDS: 0.9 % SODIUM CHLORIDE 1,000 ML IV SCH ×2 (07:09→11:01)
[2025-05-11] MEDS ORDERED: VANCOMYCIN PER PHARMACY IV SCH (09:41)
[2025-05-11] MEDS ORDERED: POTASSIUM CHLORIDE 40 MEQ in DEXTROSE 5% IN WATER 500 ML IV PRN (09:41)
[2025-05-11] MEDS ORDERED: SENNOSIDES 1 TABLET PO PRN (09:41)
[2025-05-11] MEDS ORDERED: METOCLOPRAMIDE 10 MG/2 ML VIAL IV PRN (09:41)
[2025-05-11] MEDS ORDERED: ACETAMINOPHEN 325 MG TABLET PO PRN (09:41)
[2025-05-11] MEDS ORDERED: POLYETHYLENE GLYCOL 3350 17 GM PACKET PO PRN (09:41)
[2025-05-11] MEDS ORDERED: HYDROcodone/APAP 10/325MG TABLET PO PRN (09:41)
[2025-05-11] MEDS ORDERED: MAGNESIUM SULFATE 2 GM/50 ML BAG IV PRN (09:41)
[2025-05-11] MEDS ORDERED: POTASSIUM CHLORIDE 20 MEQ TABLET PO PRN ×2 (09:41)
[2025-05-11] MEDS: PIPERACILLIN SODIUM/TAZOBACTAM 3.375 GM in DEXTROSE 5% IN WATER 50 ML IV SCH (11:00)
[2025-05-11] MEDS: VANCOMYCIN 1,500 MG in 0.9 % SODIUM CHLORIDE 500 ML IV SCH (11:00)
[2025-05-11] MEDS ORDERED: ACETAMINOPHEN 160 MG/5 ML ORAL.SOL PT PRN (11:11)
[2025-05-11] MEDS ORDERED: POLYETHYLENE GLYCOL 3350 17 GM PACKET PT PRN (11:19)
[2025-05-11] MEDS ORDERED: POTASSIUM CHLORIDE 20 MEQ/15 ML ML PO PRN (11:21)
[2025-05-11] MEDS ORDERED: SENNOSIDES 8.8 MG/5 ML ML PT PRN (11:22)
[2025-05-11] MEDS: DOCUSATE SODIUM 100 MG CAPSULE PO SCH (11:26)
[2025-05-11] MEDS: BACLOFEN 10 MG TABLET PO SCH (11:26)
[2025-05-11] MEDS: guaiFENesin 600 MG TAB.SR.12H PO SCH (11:34)
[2025-05-11] MEDS: FLUDROCORTISONE 0.1 MG TABLET PO SCH (11:35)
[2025-05-11] MEDS: ENOXAPARIN 40 MG/0.4 ML SYRINGE SQ SCH (11:36)
[2025-05-11] MEDS ORDERED: NOREPINEPHRINE 250 ML IV PRN (12:15)
[2025-05-11] MEDS: 0.9 % SODIUM CHLORIDE 250 ML IV SCH (12:49)
[2025-05-11] MEDS: BACLOFEN 10 MG TABLET PT SCH (12:50)
[2025-05-11] MEDS: IPRATROPIUM/ALBUTEROL 3 ML AMPUL.NEB NEB PRN (15:19)
[2025-05-11] MEDS: PIPERACILLIN SODIUM/TAZOBACTAM 3.375 GM in DEXTROSE 5% IN WATER 100 ML IV SCH (15:32)
[2025-05-11] MEDS: POTASSIUM CHLORIDE 20 MEQ/15 ML ML PT PRN (17:10)
[2025-05-11] MEDS: 0.9 % SODIUM CHLORIDE 10 ML SYRINGE IV SCH (19:35)
[2025-05-11] MEDS: MUPIROCIN OINT 2% 22GM NARES SCH (20:59)
[2025-05-11] MEDS: CITALOPRAM 20 MG TABLET PT SCH (21:00)
[2025-05-11] MEDS: DOCUSATE SODIUM 10 MG/ML ML PT SCH (21:01)
[2025-05-12 06:34] LABS: ALT/SGPT 11 U/L (<40); AST/SGOT 10 U/L (<40); Albumin 3.2 gm/dL (3.2-5.2); Albumin/Globulin Ratio 1.5 (1.0-2.3); Alkaline Phosphatase 97 U/L (39-117); Anion Gap 8.0 (8.0-16.0); Bilirubin,Direct < 0.2 mg/dL (0-0.3); Bilirubin,Total 0.3 mg/dL (0.1-1.0); Blood Urea Nitrogen 7 mg/dL (8-23); Calcium 8.3 mg/dL (8.6-10.4); Carbon Dioxide 23 mmol/L (22-30); Chloride 108 mmol/L (96-108); Globulin 2.2 gm/dL (2.2-3.7); Glucose 85 mg/dL (70-105); Phosphorous 2.4 mg/dL (2.5-4.5); Potassium 3.9 mmol/L (3.3-5.1); Sodium 139 mmol/L (133-145); Triglycerides 95 mg/dL (<150); Uric Acid 2.4 mg/dL (2.5-8.0)
[2025-05-12 07:13] LABS: Basophils # (Auto) 0.02 K/mcL (0.00-0.30); Basophils % (Auto) 0.3 % (0.0-2.0); Eosinophils # (Auto) 0.10 K/mcL (0.00-0.70); Eosinophils % (Auto) 1.3 % (0.0-7.0); Hematocrit 38.4 % (40.1-51.0); Hemoglobin 11.5 g/dL (13.7-17.5); Lymphocytes # (Auto) 0.67 K/mcL (1.50-4.80); Lymphocytes % (Auto) 8.6 % (15.5-49.0); Mean Corpuscular HGB Conc 29.9 g/dL (31.0-36.0); Monocytes # (Auto) 0.55 K/mcL (0.10-0.90); Monocytes % (Auto) 7.1 % (1.0-12.0); Neutrophils % (Auto) 82.6 % (38.0-78.0); Platelet Count 205 K/mcL (140-440); RBC 4.25 M/mcL (4.63-6.08); WBC 7.8 K/mcL (4.5-11.0)
[2025-05-12] MEDS: BISACODYL 5 MG TABLET PO SCH (07:47)
[2025-05-12] MEDS: HYDROcodone/APAP 7.5MG/15ML 15 ML UDC PT PRN (08:07)
[2025-05-12] MEDS: ONDANSETRON 4 MG/2 ML VIAL IV PRN (08:09)
[2025-05-12] MEDS: DEXTROSE 5%-1/2NS W/20MEQ KCL 1,000 ML IV SCH (08:40)
[2025-05-12] MEDS: DEXTROSE 5%-1/2NS W/10MEQ KCL 1,000 ML IV SCH (09:12)
[2025-05-12] MEDS: ACETYLCYSTEINE 800 MG/4 ML VIAL NEB PRN (10:03)
[2025-05-12] MEDS: CHLORHEXIDINE GLUCONATE 15 ML UDC SWABMOUTH SCH (20:25)
[2025-05-13 06:50] LABS: ALT/SGPT 11 U/L (<40); AST/SGOT 9 U/L (<40); Albumin 3.4 gm/dL (3.2-5.2); Albumin/Globulin Ratio 1.5 (1.0-2.3); Alkaline Phosphatase 97 U/L (39-117); Anion Gap 8.0 (8.0-16.0); Bilirubin,Direct < 0.2 mg/dL (0-0.3); Bilirubin,Total 0.3 mg/dL (0.1-1.0); Blood Urea Nitrogen 2 mg/dL (8-23); C-Reactive Protein 6.35 mg/dL (0.03-0.80); Calcium 8.8 mg/dL (8.6-10.4); Carbon Dioxide 27 mmol/L (22-30); Chloride 104 mmol/L (96-108); Globulin 2.3 gm/dL (2.2-3.7); Glucose 116 mg/dL (70-105); Phosphorous 2.3 mg/dL (2.5-4.5); Potassium 3.9 mmol/L (3.3-5.1); Sodium 139 mmol/L (133-145); Triglycerides 102 mg/dL (<150); Uric Acid 2.0 mg/dL (2.5-8.0)
[2025-05-13 08:32] LABS: Basophils # (Auto) 0.01 K/mcL (0.00-0.30); Basophils % (Auto) 0.2 % (0.0-2.0); Eosinophils # (Auto) 0.12 K/mcL (0.00-0.70); Eosinophils % (Auto) 2.3 % (0.0-7.0); Hematocrit 38.8 % (40.1-51.0); Hemoglobin 11.5 g/dL (13.7-17.5); Lymphocytes # (Auto) 0.71 K/mcL (1.50-4.80); Lymphocytes % (Auto) 13.5 % (15.5-49.0); Mean Corpuscular HGB Conc 29.6 g/dL (31.0-36.0); Monocytes # (Auto) 0.60 K/mcL (0.10-0.90); Monocytes % (Auto) 11.5 % (1.0-12.0); Neutrophils % (Auto) 72.1 % (38.0-78.0); Platelet Count 238 K/mcL (140-440); RBC 4.26 M/mcL (4.63-6.08); WBC 5.2 K/mcL (4.5-11.0)
[2025-05-13] MEDS: PANTOPRAZOLE 40 MG VIAL IV SCH (09:19)
[2025-05-13] MEDS: VANCOMYCIN 2,000 MG in 0.9 % SODIUM CHLORIDE 500 ML IV SCH (12:48)
[2025-05-14 06:21] LABS: ALT/SGPT 11 U/L (<40); AST/SGOT 13 U/L (<40); Albumin 3.9 gm/dL (3.2-5.2); Albumin/Globulin Ratio 1.4 (1.0-2.3); Alkaline Phosphatase 108 U/L (39-117); Anion Gap 15.0 (8.0-16.0); Bilirubin,Direct 0.2 mg/dL (<0.3); Bilirubin,Total 0.5 mg/dL (0.1-1.0); Blood Urea Nitrogen 2 mg/dL (8-23); Calcium 9.5 mg/dL (8.6-10.4); Carbon Dioxide 21 mmol/L (22-30); Chloride 103 mmol/L (96-108); Globulin 2.8 gm/dL (2.2-3.7); Glucose 91 mg/dL (70-105); Phosphorous 2.8 mg/dL (2.5-4.5); Potassium 3.9 mmol/L (3.3-5.1); Sodium 139 mmol/L (133-145); Triglycerides 142 mg/dL (<150); Uric Acid 1.7 mg/dL (2.5-8.0)
[2025-05-14] MEDS: FUROSEMIDE 40 MG/4 ML VIAL IV ONE (08:46)
[2025-05-14] MEDS: METHOCARBAMOL 1,000 MG/10 ML VIAL IV ONE (10:09)
[2025-05-14] MEDS: DEXTROSE 5%-1/2NS W/20MEQ KCL 1,000 ML IV SCH (10:29)
[2025-05-14] MEDS ORDERED: METHOCARBAMOL 1,000 MG/10 ML VIAL IV PRN (16:00)
[2025-05-15 06:31] LABS: ALT/SGPT 8 U/L (<40); AST/SGOT 11 U/L (<40); Albumin 3.4 gm/dL (3.2-5.2); Albumin/Globulin Ratio 1.4 (1.0-2.3); Alkaline Phosphatase 94 U/L (39-117); Anion Gap 9.0 (8.0-16.0); Bilirubin,Direct 0.3 mg/dL (<0.3); Bilirubin,Total 0.6 mg/dL (0.1-1.0); Blood Urea Nitrogen 7 mg/dL (8-23); Calcium 8.8 mg/dL (8.6-10.4); Carbon Dioxide 24 mmol/L (22-30); Chloride 103 mmol/L (96-108); Globulin 2.5 gm/dL (2.2-3.7); Glucose 113 mg/dL (70-105); Phosphorous 3.7 mg/dL (2.5-4.5); Potassium 3.5 mmol/L (3.3-5.1); Sodium 136 mmol/L (133-145); Triglycerides 104 mg/dL (<150); Uric Acid 1.9 mg/dL (2.5-8.0)
[2025-05-15] MEDS: VANCOMYCIN 1,500 MG in 0.9 % SODIUM CHLORIDE 500 ML IV SCH (20:25)
[2025-05-16 08:34] LABS: Hematocrit 41.0 % (40.1-51.0); Hemoglobin 12.7 g/dL (13.7-17.5); Mean Corpuscular HGB Conc 31.0 g/dL (31.0-36.0); Platelet Count 242 K/mcL (140-440); RBC 4.67 M/mcL (4.63-6.08); WBC 18.9 K/mcL (4.5-11.0)
[2025-05-16 08:55] LABS: ALT/SGPT 9 U/L (<40); AST/SGOT 11 U/L (<40); Albumin 3.4 gm/dL (3.2-5.2); Albumin/Globulin Ratio 1.3 (1.0-2.3); Alkaline Phosphatase 92 U/L (39-117); Anion Gap 12.0 (8.0-16.0); Bilirubin,Direct < 0.2 mg/dL (0-0.3); Bilirubin,Total 0.3 mg/dL (0.1-1.0); Blood Urea Nitrogen 10 mg/dL (8-23); C-Reactive Protein 8.20 mg/dL (0.03-0.80); Calcium 8.6 mg/dL (8.6-10.4); Carbon Dioxide 23 mmol/L (22-30); Chloride 107 mmol/L (96-108); Globulin 2.6 gm/dL (2.2-3.7); Glucose 137 mg/dL (70-105); Phosphorous 3.4 mg/dL (2.5-4.5); Potassium 3.3 mmol/L (3.3-5.1); Sodium 142 mmol/L (133-145); Triglycerides 124 mg/dL (<150); Uric Acid 2.8 mg/dL (2.5-8.0)
[2025-05-16 09:06] LABS: RBC Morphology NORMAL (Normal)
[2025-05-16] MEDS: FUROSEMIDE 40 MG/4 ML VIAL IV ONE ×2 (12:17→12:22)
[2025-05-16] MEDS ORDERED: CARBOXYMETHYLCELLULOSE SODIUM 1 EACH DROPER.GEL OU PRN (19:36)
[2025-05-17 08:14] LABS: C-Reactive Protein 15.90 mg/dL (0.03-0.80)
[2025-05-17 08:27] LABS: ALT/SGPT 8 U/L (<40); AST/SGOT 8 U/L (<40); Albumin 3.2 gm/dL (3.2-5.2); Albumin/Globulin Ratio 1.3 (1.0-2.3); Alkaline Phosphatase 85 U/L (39-117); Anion Gap 11.0 (8.0-16.0); Bilirubin,Direct < 0.2 mg/dL (0-0.3); Bilirubin,Total < 0.2 mg/dL (0.1-1.0); Blood Urea Nitrogen 16 mg/dL (8-23); Calcium 8.5 mg/dL (8.6-10.4); Carbon Dioxide 23 mmol/L (22-30); Chloride 113 mmol/L (96-108); Globulin 2.5 gm/dL (2.2-3.7); Glucose 133 mg/dL (70-105); Phosphorous 3.2 mg/dL (2.5-4.5); Potassium 2.7 mmol/L (3.3-5.1); Sodium 147 mmol/L (133-145); Triglycerides 122 mg/dL (<150); Uric Acid 4.0 mg/dL (2.5-8.0)
[2025-05-17 08:31] LABS: Basophils # (Auto) 0.04 K/mcL (0.00-0.30); Basophils % (Auto) 0.2 % (0.0-2.0); Eosinophils # (Auto) 0.06 K/mcL (0.00-0.70); Eosinophils % (Auto) 0.4 % (0.0-7.0); Hematocrit 36.4 % (40.1-51.0); Hemoglobin 11.3 g/dL (13.7-17.5); Lymphocytes # (Auto) 0.76 K/mcL (1.50-4.80); Lymphocytes % (Auto) 4.6 % (15.5-49.0); Mean Corpuscular HGB Conc 31.0 g/dL (31.0-36.0); Monocytes # (Auto) 1.63 K/mcL (0.10-0.90); Monocytes % (Auto) 9.8 % (1.0-12.0); Neutrophils % (Auto) 84.7 % (38.0-78.0); Platelet Count 257 K/mcL (140-440); RBC 4.17 M/mcL (4.63-6.08); WBC 16.7 K/mcL (4.5-11.0)
[2025-05-17] MEDS: POTASSIUM CHLORIDE 10 MEQ/100 ML BAG IV SCH (09:11)
[2025-05-17] MEDS: DEXTROSE 5% IN WATER 500 ML IV ONE (09:12)
[2025-05-17] MEDS: POTASSIUM CHLORIDE 20 MEQ/15 ML ML PT PRN (09:13)
[2025-05-17] MEDS: DEXTROSE 5% IN WATER 1,000 ML IV ONE (10:11)
[2025-05-17 16:06] LABS: Anion Gap 9.0 (8.0-16.0); Blood Urea Nitrogen 15 mg/dL (8-23); Calcium 8.3 mg/dL (8.6-10.4); Carbon Dioxide 23 mmol/L (22-30); Chloride 113 mmol/L (96-108); Glucose 151 mg/dL (70-105); Potassium 3.3 mmol/L (3.3-5.1); Sodium 145 mmol/L (133-145)
[2025-05-18 06:17] LABS: Vancomycin,Random 17.0 ug/mL
== END 2025-05-18 13:35 | disposition home health service (06) | DRG 871 ==
LOC: ED 03:38 → ICU 09:27
PROVIDERS: ADMIT Internal Medicine; ATTEND Internal Medicine